=== PATIENT | female | born 2005 | race Caucasian/White ===

== ENCOUNTER 2023-07-30 13:53 | Outpatient (CLI) | payer BC ==
[~2023-07-30 13:53] MED LIST: Magnevist 469MG/ML 20 ML VIAL ONE
== END 2023-07-30 13:54 | disposition home or self-care (01) ==
LOC: CSHMRI 13:53
PROVIDERS: ATTEND Pain Medicine Interventional Pain Medicine
DX: D35.2 Benign neoplasm of pituitary gland (principal)
CPT/HCPCS: 70553; A9579